=== PATIENT | male | born 1955 | race Hispanic/Latino ===

== ENCOUNTER 2017-08-13 06:20 | Observation (INO) | payer BC ==
[2017-08-13] MEDS ORDERED: Nitroglycerin 2% Ointment 1 INCH/1 GM Packet ONE (06:50)
[2017-08-13 07:05] LABS: ALT (SGPT) 47 U/L (8-55); AST (SGOT) 33 U/L (5-34); Albumin 4.2 g/dL (3.5-5.0); Alkaline Phosphatase 91 U/L (40-150); Anion Gap 11 mmol/L (10-20); BUN (Urea Nitrogen) 13 mg/dL (8.4-25.7); Bilirubin, Total 0.4 mg/dL (0.2-1.2); CK (CPK) 187 U/L (30-200); Calc. Creatinine Clearance 0 mL/min (70-130); Calcium 9.2 mg/dL (7.8-10.44); Carbon Dioxide 23 mmol/L (22-29); Chloride 106 mmol/L (98-107); Estimated GFR-MDRD 77; Globulin 3.3 g/dL (2.4-3.5); Glucose 124 mg/dL (70-105); Lipase 18 U/L (8-78); Potassium 3.8 mmol/L (3.5-5.1); Protein, Total 7.5 g/dL (6.0-8.3); Sodium 136 mmol/L (136-145)
[2017-08-13 07:06] LABS: #Basophils 0.1 thou/uL (0.0-0.2); #Eosinphils 0.1 thou/uL (0.0-0.7); #Monocytes 0.6 thou/uL (0.11-0.59); #Neutrophils 4.4 thou/uL (1.40-6.50); %Basophils 0.7 % (0.0-1.0); %Eosinophils 1.7 % (0.0-10.0); %Lymphocytes 36.4 % (21.0-51.0); %Monocytes 7.2 % (0.0-10.0); %Neutrophils 53.9 % (42.0-75.0); Hemoglobin 14.4 g/dL (14.0-18.0); Mean Corpuscular HGB CONC 33.7 g/dL (32.0-36.0); Mean Corpuscular Hemoglobin 28.3 pg (27.0-31.0); Mean Corpuscular Volume 84.1 fl (80.0-94.0); Mean Platelet Volume 8.3 fL (7.4-10.4); Platelet Count 204 thou/uL (130-400); Red Blood Cell (RBC) Count 5.09 mill/uL (4.70-6.10); White Blood Cell (WBC) Count 8.1 thou/uL (4.8-10.8)
[2017-08-13 07:10] LABS: CKMB 1.7 ng/mL (0-6.6); Troponin I Less than 0.010 ng/mL (< 0.028)
[2017-08-13] MEDS ORDERED: Acetaminophen 325 MG TAB ONE (07:51)
--- NOTE | 2017-08-13 07:54 | RAD ---
PORTABLE CHEST ONE VIEW: 08/13/2017 6:29 a.m. HISTORY: Chest pain and dizziness. COMPARISON: 10/09/2016 FINDINGS: The heart size is normal. The lungs are expanded without focal areas of consolidation, pneumothorax, or pleural effusions. IMPRESSION: No radiographic evidence of acute cardiopulmonary process. POS: [facility]
--- NOTE | 2017-08-13 08:59 | HP ---
PRIMARY CARE PHYSICIAN: The patient does not have a primary care physician. CHIEF COMPLAINT: Chest pain. HISTORY OF PRESENT ILLNESS: Mr. Way is a very pleasant 62-year-old gentleman that has no known past medical history. He says that his problem started yesterday while he was at work. He says it was in the middle of the day when he was working, he started feeling dizzy and a bit lightheaded. He also noticed a tightness in his chest. He says he slowed down working and it got better, then he st arted working again and the symptoms came back. He says he left work early around 2:30 and said that the symptoms went on off and on through the night. He says that the tightness in his chest was unde r the left breast and it felt heavy and he rated it about 5/10. He says it did not necessarily radia jero anywhere, but he did notice it in his back. He says during that time he could hardly breathe and he could notice that both of his arms were hurting and feeling numb. He says this continued on thro ugh the night and he was in fact afraid to go to sleep and was also noticing some shortness of breath at night. The following day it continued and as a result he felt the need to come to the hospital f or evaluation. He says he was concerned that it could be of heart because he has 2 brothers that d in their 40s of heart attack. The patient also notes a headache which started around the same time , he notices it in the frontal region. There is no associated specific visual change, although he sa ys he needs glasses. He has had some nausea; however, this may be related to the chest pain and he c ontinues to have the headache now. There has been no sinus congestion or sinus drainage. REVIEW OF SYSTEMS: CONSTITUTIONAL: There have been no fevers, chills, no night sweats, no weight lo ss. HEENT: He has complained of headache as previously mentioned as well as feeling dizzy. No visu al changes, no sore throat, rhinorrhea, no neck pain, no adenopathy. PULMONARY: No hemoptysis, no c ough, no wheezing. CARDIOVASCULAR: As of history of present illness. He also denied any palpitatio ns. No specific PND or orthopnea. He did admit to some shortness of breath last night, but only las t night. GASTROINTESTINAL: No abdominal pain. He has had some nausea, but no vomiting, no recent c hange in bowels, no hematemesis, no melena. GENITOURINARY: No urinary frequency or hematuria. MUSC ULOSKELETAL: No muscle pains or weakness. NEUROLOGIC: No focal weakness, but he had some numbness in both upper extremities. SKIN/INTEGUMENT: No skin changes. No rash. PSYCHIATRIC: No symptoms o f anxiety or depression. PAST MEDICAL HISTORY: Negative. PAST SURGICAL HISTORY: It sounds like he has had cholecystectomy. He says he had gallstones removed . ALLERGIES: No known drug allergies. SOCIAL HISTORY: He is a nonsmoker. He drinks socially. He says he drinks about 4 beers a day. He has a live-in friend. He has 2 sons and 2 daughters as well as 24 grandchildren. FAMILY HISTORY: He has noted 2 brothers that of heart attack. He says that his father had stom ach cancer. His grandmother had some type of cancer in her chest, but she was a smoker. CURRENT MEDICATIONS: None. PHYSICAL EXAMINATION: GENERAL: He is alert and oriented. He appears to be in no acute distress. VITAL SIGNS: Blood pressure was 157/94, heart rate 68, respiratory rate of 18, temperature is 98.1. HEENT: Pupils are equal, round, and reactive. Extraocular muscles are intact. His sclerae are anic teric. Tympanic membranes are pearly suarez. There was no fluid behind the drum. Throat: He has poo r dentition, but no erythema or exudates. NECK: There was no adenopathy, no bruits. LUNGS: Clear to auscultation. I did not appreciate any wheezing or rhonchi. CARDIAC: He has a normal S1 and S2. Normal PMI. No murmurs, clicks or rubs. ABDOMEN: Obese, it is soft, it is nontender and nondistended. Positive for bowel sounds. No reboun d or guarding. EXTREMITIES: There is no clubbing, cyanosis, no edema. He has got palpable dorsalis pedis pulses. NEUROLOGIC: The exam is nonfocal. His muscle strength was intact in both his upper and lower extrem ities. LABORATORY DATA AND IMAGING DATA: White blood cell count 8.1, hemoglobin 14.4, hematocrit is 42.8, p latelet count is 204. D-dimer is less than 0.27. Sodium 136, potassium 3.8, chloride is 106, CO2 is 23, BUN 13, creatinine 0.99, glucose is 124, troponin was less than 0.010. He had an EKG which is s inus bradycardia and there were no acute ST wave changes. On his chest x-ray, it is essentially nega tive. Heart size was normal. There was no evidence of any interstitial infiltrates or airspace dise ase. ASSESSMENT AND PLAN: This is a pleasant 62-year-old gentleman who presents to the emergency room com plaining of chest pain which started at work. It is hard to tell whether or not it was exertional, b ut it does appear to be so. He has never had chest pain before and given his age and family history, it is suspicious for possible angina. For this reason, he will be placed in observation. We will c ontinue to trend his cardiac enzymes. He will be placed on aspirin and nitrates. His heart rate is already low. Therefore, we will not place him on a beta sarah at this time. We will get a lipid p joe and also a nuclear stress test to further stratify his risks for coronary artery disease. GENERAL HEALTH: The patient was counseled on the need to get a primary care physician and that he is of age that he will need to start getting his routine checkups as well as screening for cancer preve ntion.
[2017-08-13] MEDS ORDERED: Aspirin 325 MG TAB PO SCH ×2 (09:00→09:08)
[2017-08-13] MEDS ORDERED: Acetaminophen 325 MG TAB PO PRN (09:08)
[2017-08-13] MEDS ORDERED: hydrALAZINE 20 MG/ML VIAL SLOW IVP PRN (09:08)
[2017-08-13] MEDS ORDERED: Benzonatate 100 MG CAP PO PRN (09:08)
[2017-08-13] MEDS ORDERED: Enoxaparin Sodium 40 MG/0.4 ML SYRINGE SC SCH ×2 (09:08→09:30)
[2017-08-13] MEDS ORDERED: Nitroglycerin 0.4 MG TAB (25 Tab Bottle) PO PRN (09:08)
[2017-08-13] MEDS ORDERED: Mag-Al 1200 mg/1200 mg/30 ML UDCUP PO PRN (09:08)
[2017-08-13 09:09] VITALS: TEMP 98.2; BMI 29.5
[2017-08-13 10:05] LABS: Troponin I Less than 0.010 ng/mL (< 0.028)
[2017-08-13] MEDS ORDERED: Nitroglycerin 2% Ointment 1 INCH/1 GM Packet TOP SCH (14:00)
[2017-08-13 14:56] LABS: Troponin I Less than 0.010 ng/mL (< 0.028)
[2017-08-13 15:15] VITALS: BP 166/77
--- NOTE | 2017-08-13 15:54 | NM ---
MYOCARDIAL PERFUSION SCAN WITH SPECT IMAGIN08/13/17 HISTORY: Chest pain. Examination is performed using 27.8 millicuries of 99m technetium Sestamibi in stress and 9.1 millicu margaux on the resting images. This shows a normal distribution of radiopharmaceutical without signs of ischemia or scar. WALL MOTION: There is symmetric contractility to the ventricle. LEFT VENTRICULAR EJECTION FRACTION: The calculated left ventricular ejection fraction is 70%. IMPRESSION: Unremarkable myocardial perfusion scan. POS: [facility]
--- NOTE | 2017-08-13 22:53 | DIS ---
DATE OF ADMISSION: 08/13/2017 DATE OF DISCHARGE: 08/14/2017 PRIMARY CARE PHYSICIAN: The patient does not have a primary care physician. DISCHARGE DISPOSITION: Home. PRIMARY DISCHARGE DIAGNOSES: 1. Chest pain, probable noncardiac. 2. Hypertension, uncontrolled. 3. Bradycardia. DISCHARGE MEDICATIONS: Include lisinopril 5 mg daily. PROCEDURES DONE DURING ADMISSION: The patient had a nuclear stress test, which was negative for reve rsible ischemia. CODE STATUS: FULL CODE. ALLERGIES: No known drug allergies. HOSPITAL COURSE: Mr. Way is a pleasant 62-year-old gentleman who presented to the emergency ro with complaints of chest pain and dyspnea. He says it started while he was at work on yesterday a nd was off and on pretty much through the entire day yesterday as well as this morning. He came to [facility] emergency room for evaluation. There, it was noted that his blood pressure was elevated and his c ardiac enzymes, however, were negative. EKG was demonstrated sinus bradycardia without any significa nt changes. Given his family history of heart disease and he is a former smoker, he was placed in ob servation and underwent a nuclear stress test, this was negative. He is being discharged home as a r esult; however, he was instructed that his heart rate was noted to be low throughout the hospitalizat ion. However, it is unclear whether or not this was causing his symptoms. He needs to follow up wit h his primary care physician, RN to establish one then followup, so that they can monitor his heart r ate. Also, he was diagnosed with hypertension during this admission and will be started on lisinopri l. He was also instructed on the dangers of untreated hypertension and the need for close followup t o help with monitoring the blood pressure as well as adjusting medication doses as needed. He says t hat he plans to choose a doctor. He does have insurance. He will call the customer service number o n his insurance card, so that they can refer him to a physician in his plan. The patient therefore w ill be discharged home today on 08/13/2017.
[2017-08-14] MEDS ORDERED: Enoxaparin Sodium 40 MG/0.4 ML SYRINGE SC SCH (09:00)
== END 2017-08-13 18:04 | disposition home or self-care (01) ==
LOC: ERS 06:20 → 2SW 07:38
PROVIDERS: ADMIT Internal Medicine; ATTEND Internal Medicine
DX: R07.89 Other chest pain (principal); I10 Essential (primary) hypertension; Z87.891 Personal history of nicotine dependence
CPT/HCPCS: 36415; 71045; 78452; 80053; 82553; 83690; 83880; 84484; 85025; 85379; 93005; 93017; 96360; 96372; A9500; G0378; J1650

== ENCOUNTER 2017-09-11 12:06 | Emergency (ER) | payer BC ==
[2017-09-11] MEDS ORDERED: Ondansetron ODT 8 MG TAB ONE (13:04)
[2017-09-11] MEDS ORDERED: Meclizine HCl 25 MG TAB ONE (13:04)
[2017-09-11] MEDS ORDERED: Acetaminophen 500 MG TAB ONE (14:06)
--- NOTE | 2017-09-13 14:24 | EKG ---
Test Reason : Blood Pressure : / mmHG Vent. Rate : 070 BPM Atrial Rate : 070 BPM P-R Int : 142 ms QRS Dur : 086 ms QT Int : 382 ms P-R-T Axes : 048 068 044 degrees QTc Int : 412 ms Normal sinus rhythm Possible Left atrial enlargement Borderline ECG Confirmed by ELIEZER GOLD ([id number]), fashion editor CAROLYN BIRD ([id number]) on 09/13/2017 2:24:25 PM Referred By: Confirmed By:ELIEZER GOLD
== END 2017-09-11 14:11 | disposition home or self-care (01) ==
LOC: ERS 12:06
DX: R42 Dizziness and giddiness (principal); R51 Headache; R11.0 Nausea; I10 Essential (primary) hypertension; Z87.891 Personal history of nicotine dependence; Z79.899 Other long term (current) drug therapy
CPT/HCPCS: 93005

== ENCOUNTER 2018-01-14 16:46 | Emergency (ER) | payer BC ==
[2018-01-14] MEDS ORDERED: Ketorolac Tromethamine 60 MG/2 ML VIAL ONE (19:04)
[2018-01-14] MEDS ORDERED: Apixaban 5 MG TAB PO SCH (19:30)
--- NOTE | 2018-01-14 20:11 | ULT ---
DOPPLER VENOUS ULTRASOUND LEFT LOWER EXTREMITY 01/14/18 INDICATION: Left leg pain for one week. TECHNIQUE: Huynh scale, color doppler and vascular duplex with spectral analysis was performed of the deep venous structures of the left lower extremity. Common femoral vein, superficial femoral vein, popliteal vei n, posterior tibial vein, proximal greater saphenous and profunda veins were assessed. FINDINGS: Normal compression, flow, and augmentation seen involving the greater saphenous vein junction to the left common femoral vein; however, slightly distally within the left common femoral vein. There is on ly partial compression. No intraluminal thrombus is grossly evident. There is normal flow within the segment of the left common femoral vein. There is suggestion of slight thickening of the casey of the left common femoral vein and may reflect sequela of DVT. The left superficial femoral vein, left pop liteal vein and left posterior tibial vein demonstrate normal compression, flow and augmentation. The proximal profunda femoral vein demonstrates normal compression, flow and augmentation. . IMPRESSION: Diminished compression of the left common femoral vein without visible intraluminal thrombus. There i s suggestion of some wall thickening involving the left common femoral vein and may reflect sequela o f prior DVT or chronic DVT. No large occlusive thrombus or large partially occlusive thrombus is tiffanie sly evident. POS: [facility]
== END 2018-01-14 19:52 | disposition home or self-care (01) ==
LOC: ERS 16:46
DX: I82.5Z2 Chronic embolism and thrombosis of unspecified deep veins of left distal lower extremity (principal); I10 Essential (primary) hypertension
CPT/HCPCS: 96372; J1885

== ENCOUNTER 2018-08-06 20:07 | Emergency (ER) | payer BC | END 2018-08-06 20:25 | disposition home or self-care (01) | LOC: ERS 20:07 | DX: B02.9 Zoster without complications (principal); I10 Essential (primary) hypertension | CPT/HCPCS: 99282 ==

== ENCOUNTER 2018-12-02 05:59 | Emergency (ER) | payer BC ==
[2018-12-02] MEDS ORDERED: Aspirin Chewable 81 MG TAB ONE (06:15)
[2018-12-02] MEDS ORDERED: diphenhydrAMINE 50 MG/ML VIAL ONE (06:18)
[2018-12-02] MEDS ORDERED: Metoclopramide HCl 10 MG/2 ML VIAL ONE (06:18)
[2018-12-02 06:24] LABS: #Eosinphils 0.3 thou/uL (0.0-0.7); #Monocytes 0.6 thou/uL (0.11-0.59); #Neutrophils 4.5 thou/uL (1.40-6.50); %Basophils 0.5 % (0.0-1.0); %Eosinophils 3.6 % (0.0-10.0); %Lymphocytes 35.9 % (21.0-51.0); %Monocytes 6.7 % (0.0-10.0); %Neutrophils 53.3 % (42.0-75.0); Hemoglobin 15.2 g/dL (14.0-18.0); Mean Corpuscular HGB CONC 33.4 g/dL (32.0-36.0); Mean Corpuscular Hemoglobin 28.6 pg (27.0-31.0); Mean Corpuscular Volume 85.8 fL (78.0-98.0); Mean Platelet Volume 8.5 fL (7.4-10.4); Platelet Count 193 thou/uL (130-400); RBC Distribution Width 12.1 % (11.5-14.5); Red Blood Cell (RBC) Count 5.31 mill/uL (4.70-6.10); White Blood Cell (WBC) Count 8.3 thou/uL (4.8-10.8)
[2018-12-02 07:01] LABS: ALT (SGPT) 87 U/L (8-55); AST (SGOT) 59 U/L (5-34); Albumin 3.8 g/dL (3.4-4.8); Alkaline Phosphatase 108 U/L (40-110); Anion Gap 12 mmol/L (10-20); BUN (Urea Nitrogen) 10 mg/dL (8.4-25.7); Bilirubin, Total 0.4 mg/dL (0.2-1.2); Calc. Creatinine Clearance 0 mL/min (70-130); Carbon Dioxide 22 mmol/L (23-31); Chloride 105 mmol/L (98-107); Estimated GFR-MDRD 81; Globulin 3.6 g/dL (2.4-3.5); Glucose 118 mg/dL (80-115); Potassium 4.1 mmol/L (3.5-5.1); Protein, Total 7.4 g/dL (5.8-8.1); Sodium 135 mmol/L (136-145)
--- NOTE | 2018-12-02 08:11 | RAD ---
CHEST 1 VIEW: INDICATION: Chest pain and headache. COMPARISON: Prior exam of 08/13/2017. FINDINGS: Lungs are clear. Heart size is accentuated by exam technique. No acute osseous abnormality is evide nt. IMPRESSION: No acute cardiopulmonary abnormality. POS: [facility]
== END 2018-12-02 07:48 | disposition home or self-care (01) ==
LOC: ERS 05:59
DX: R07.9 Chest pain, unspecified (principal); R51 Headache; I10 Essential (primary) hypertension
CPT/HCPCS: 36415; 71045; 80053; 84484; 85025; 93005; 96365; 96375; J1200; J2765

== ENCOUNTER 2019-01-21 06:13 | Emergency (ER) | payer BC ==
[2019-01-21] MEDS ORDERED: Aspirin Chewable 81 MG TAB ONE (06:24)
[2019-01-21 06:48] LABS: #Basophils 0.1 thou/uL (0.0-0.2); #Eosinphils 0.2 thou/uL (0.0-0.7); #Lymphocytes 2.4 thou/uL (1.20-3.40); #Monocytes 0.5 thou/uL (0.11-0.59); #Neutrophils 3.5 thou/uL (1.40-6.50); %Eosinophils 3.6 % (0.0-10.0); %Lymphocytes 35.6 % (21.0-51.0); %Monocytes 7.8 % (0.0-10.0); Hemoglobin 14.6 g/dL (14.0-18.0); Mean Corpuscular HGB CONC 33.2 g/dL (32.0-36.0); Mean Corpuscular Hemoglobin 28.6 pg (27.0-31.0); Mean Corpuscular Volume 86.1 fL (78.0-98.0); Mean Platelet Volume 8.6 fL (7.4-10.4); Platelet Count 166 thou/uL (130-400); RBC Distribution Width 11.7 % (11.5-14.5); Red Blood Cell (RBC) Count 5.12 mill/uL (4.70-6.10); White Blood Cell (WBC) Count 6.8 thou/uL (4.8-10.8)
[2019-01-21 07:14] LABS: ALT (SGPT) 108 U/L (8-55); AST (SGOT) 64 U/L (5-34); Albumin 3.7 g/dL (3.4-4.8); Alkaline Phosphatase 131 U/L (40-110); Anion Gap 10 mmol/L (10-20); BUN (Urea Nitrogen) 11 mg/dL (8.4-25.7); Bilirubin, Total 0.4 mg/dL (0.2-1.2); Calc. Creatinine Clearance 0 mL/min (70-130); Calcium 8.6 mg/dL (7.8-10.44); Carbon Dioxide 23 mmol/L (23-31); Chloride 107 mmol/L (98-107); Estimated GFR-MDRD 86; Globulin 3.3 g/dL (2.4-3.5); Glucose 136 mg/dL (80-115); Potassium 4.1 mmol/L (3.5-5.1); Sodium 136 mmol/L (136-145)
--- NOTE | 2019-01-21 08:26 | RAD ---
SINGLE VIEW OF THE CHEST: COMPARISON: 12/02/2018. HISTORY: Chest pain. FINDINGS: Single view of the chest shows a normal sized cardiomediastinal silhouette. There is no evidence of c onsolidation, mass, or pleural effusion. The bones are unremarkable. IMPRESSION: No evidence of acute cardiopulmonary disease. POS: [facility]
[2019-01-21] MEDS ORDERED: Acetaminophen 500 MG TAB ONE (09:03)
[2019-01-21 10:00] LABS: Troponin I Less than 0.010 ng/mL (< 0.028)
== END 2019-01-21 10:26 | disposition home or self-care (01) ==
LOC: ERS 06:13
DX: R07.9 Chest pain, unspecified (principal); I10 Essential (primary) hypertension; G43.909 Migraine, unspecified, not intractable, without status migrainosus; Z79.82 Long term (current) use of aspirin
CPT/HCPCS: 36415; 71045; 80053; 84484; 85025; 93005

== ENCOUNTER 2022-06-21 07:22 | Outpatient (CLI) | payer OTHER | END 2022-06-21 07:23 | disposition home or self-care (01) | LOC: ULT 07:22 | PROVIDERS: ATTEND Family Medicine | DX: R74.8 Abnormal levels of other serum enzymes (principal) | CPT/HCPCS: 76705 ==

== ENCOUNTER 2023-12-09 15:42 | Outpatient (CLI) | payer OTHER | END 2023-12-09 15:43 | disposition home or self-care (01) | LOC: BICRAD 15:42 | PROVIDERS: ATTEND Family Medicine | DX: I10 Essential (primary) hypertension (principal); M25.511 Pain in right shoulder; M25.512 Pain in left shoulder; M19.019 Primary osteoarthritis, unspecified shoulder ==